=== PATIENT | male | born 1995 | race Caucasian/White ===

== ENCOUNTER 2022-12-25 19:10 | Emergency (ER) | payer OTHER ==
[~2022-12-25] VITALS: Ht 185.4 cm; Wt 195.5 kg
[2022-12-25] MEDS ORDERED: KETOROLAC10 MG PO (20:02)
[2022-12-25] MEDS ORDERED: CRUTCHES (20:16)
[2022-12-25] MEDS ORDERED: CANE1 EACH MC (20:16)
[2022-12-25 20:35] VITALS: BP 166/87
== END 2022-12-25 20:37 | disposition home or self-care (01) ==
LOC: ED 19:10
DX: S82.831A Other fracture of upper and lower end of right fibula, initial encounter for closed fracture (principal); E66.9 Obesity, unspecified; Z68.43 Body mass index [BMI] 50.0-59.9, adult; W01.0XXA Fall on same level from slipping, tripping and stumbling without subsequent striking against object, initial encounter
CPT/HCPCS: J1885